=== PATIENT | female | born 1970 | race African-American/Black ===

== ENCOUNTER 2023-12-22 13:21 | Emergency (ER) | payer MEDICARE, MEDICAID ==
[~2023-12-22] VITALS: Ht 177.8 cm; Wt 100.0 kg
[2023-12-22 13:52] VITALS: O2SAT 100
[2023-12-22 15:09] LABS: BASOPHILS % 0.5 % (0.0-2.0); EOSINOPHILS % 0.4 % (0.0-5.0); HEMATOCRIT. 42.5 % (36.0-48.0); HEMOGLOBIN. 13.8 g/dL (12.0-16.0); LYMPHOCYTES % 31.5 % (20.0-50.0); MEAN CORPUSCULAR HEMOGLOBIN 30.5 pg (28.0-32.0); MEAN CORPUSCULAR HGB CONC 32.4 g/dL (31.0-37.0); MEAN CORPUSCULAR VOLUME 94.1 fL (81.0-99.0); MEAN PLATELET VOLUME 11.4 fl (7.4-10.4); MONOCYTES % 13.3 % (2.0-8.0); NEUTROPHILS % 54.3 % (40.0-76.0); PLATELET 125 x1000/uL (130-400); RED BLOOD CELL COUNT 4.52 mill/uL (4.2-5.4); RED CELL DISTRIBUTION WIDTH 14.6 % (11.6-14.6); WHITE BLOOD COUNT 3.1 x1000/uL (4.5-11.0)
[2023-12-22 15:23] LABS: CARBON DIOXIDE 27 mEq/L (21-32); CHLORIDE 107 mEq/L (98-107); POTASSIUM 3.6 mEq/L (3.5-5.1); SODIUM 143 mEq/L (136-145)
[2023-12-22 15:24] LABS: CALCIUM 9.7 mg/dL (8.7-10.4)
[2023-12-22 15:29] LABS: CREATININE 0.9 mg/dL (0.6-1.0); GLUCOSE 197 mg/dL (70-105); UREA NITROGEN BLOOD 13 mg/dL (9-23)
[2023-12-22 15:30] LABS: ALANINE AMINOTRANSFERASE 34 IU/L (10-49); ALBUMIN 4.4 g/dL (3.2-4.8); ASPARTATE AMINOTRANSFERASE 25 IU/L (<34)
[2023-12-22 15:31] LABS: BILIRUBIN TOTAL 0.2 mg/dL (0.1-1.0); PROTEIN TOTAL 7.7 g/dL (6.0-8.3)
[2023-12-22 15:41] LABS: BILIRUBIN DIRECT < 0.1 mg/dL (<=3.0)
[2023-12-22 18:31] LABS: CLARITY URINE CLEAR (CLEAR); COLOR URINE DARK YELLOW (YELLOW); GLUCOSE URINE NEGATIVE (NEGATIVE); KETONES URINE TRACE (NEGATIVE); LEUKOCYTE ESTERASE URINE NEGATIVE (NEGATIVE); NITRITE URINE NEGATIVE (NEGATIVE); OCCULT BLOOD URINE NEGATIVE (NEGATIVE); PH URINE 5.5 (4.5-8.0); PROTEIN URINE TRACE (NEGATIVE); SPECIFIC GRAVITY URINE 1.034 (1.005-1.030)
[2023-12-22] MEDS: ONDANSETRON HCL 4MG TABLET PO ONE (18:57)
[2023-12-22] MEDS: ACETAMINOPHEN 325MG TABLET PO ONE (18:57)
[2023-12-22 19:07] LABS: BACTERIA URINE 2+; MUCUS URINE 2+ /lpf (< = 2+); RBC URINE 0-2 /hpf (0-2); SQUAMOUS EPITHELIAL CELL URINE 1+ /lpf (RARE/1+); WBC URINE 0-2 /hpf (0-2)
[2023-12-22 19:19] VITALS: BP 129/69; PULSE 72; RESP 18; TEMP 36.61404; O2SAT 100
== END 2023-12-22 19:21 | disposition home or self-care (01) ==
LOC: ER 13:35
DX: R10.11 Right upper quadrant pain (principal); E11.9 Type 2 diabetes mellitus without complications; Z98.84 Bariatric surgery status
CPT/HCPCS: 99284; 74176; 80076; 80048; 81003; 81025; 82962; 83690; 85025; 36415; Q0162